=== PATIENT | female | born 1995 | race African-American/Black ===

== ENCOUNTER → 2018-03-20 | Outpatient (CLI) | payer BC ==
--- NOTE | 2018-03-20 10:59 | RAD ---
Lumbar spine AP, oblique and lateral x-rays 5 views History: Lower back pain for one month. Findings: Lumbar vertebral body height and alignment intact. No spondylolysis defect. There is mild posterior disc space narrowing at L5-S1 could be indicative of disc pathology. No fracture. No discogenic endplate changes. No lytic or sclerotic bone lesion. Impression: No acute osseous injury. Mild posterior disc space narrowing at L5-S1 could be indicative of disc disease.
== END | disposition home or self-care (01) ==
LOC: RAD 08:53
PROVIDERS: ATTEND Physician Assistant Medical
DX: M48.07 Spinal stenosis, lumbosacral region (principal)
CPT/HCPCS: 72110